=== PATIENT | female | born 1945 | race Caucasian/White ===

== ENCOUNTER 2017-01-11 11:02 | Emergency (ER) | payer OTHER, MEDICARE ==
[~2017-01-11] VITALS: Ht 165.1 cm; Wt 90.9 kg
[2017-01-11] MEDS ORDERED: SIMV10TA2 (11:13)
[2017-01-11] MEDS ORDERED: TRIBENZOR (11:13)
[2017-01-11] MEDS ORDERED: ESCI10TA2 (11:13)
--- NOTE | 2017-01-11 13:19 | REP ---
Right ankle four views: There are no comparisons. There is a fracture at the distal fibula, likely an a avulsion. There is circumferential soft tissue edema. There is a comminuted fracture of the calcaneus extending into the subtalar joint. The mortise is symmetric. Impression: Comminuted calcaneal fracture extending into the subtalar joint. Avulsion fracture of the distal fibula. Signed by Compa Shane MD 01/11/2017 01:11 P
--- NOTE | 2017-01-11 13:21 | REP ---
Right ribs and PA chest: Right ribs four views: There is no rib fracture or other rib abnormality. PA chest: There are no comparisons. There is no pneumothorax, hemothorax or pulmonary contusion. Lung rhodes are clear. Cardiac size is normal. The willow, mediastinum, and bony thorax are unremarkable. Impression: Negative PA chest. Signed by Compa Shane MD 01/11/2017 01:13 P
--- NOTE | 2017-01-11 15:06 | REP ---
RIGHT CALCANEUS: Two views of the right calcaneus are performed. There is a comminuted fracture of the calcaneus. The fracture communicates with the subtalar joint. There is mild displacement of fracture fragments. There is posterior calcaneal spurring. IMPRESSION: Comminuted fracture calcaneus as discussed above. Unreviewed
[2017-01-11] MEDS ORDERED: COLA100C5 PO (15:20)
[2017-01-11] MEDS ORDERED: NORCOTAB PO (15:20)
[2017-01-11 15:45] VITALS: BP 125/65
--- NOTE | 2017-01-11 17:56 | REP ---
CT RIGHT FOOT: CT right foot was performed in the axial plane with sagittal and coronal reconstruction images. There is a comminuted fracture of the calcaneus. There is mild depression of the superior cortex of the calcaneus. The fracture line extends through the sustentaculum velma. The fracture line extends posteriorly and laterally to communicate with the talocalcaneal joint. Another fracture line is seen at the posterior margin of the talocalcaneal joint. There is mild distraction of fracture fragments. Comminuted fracture is also seen of the posterior distal end of the fibula with mild displacement of fracture fragments. No other fracture is seen. Ankle mortise is anatomic. There is surrounding soft tissue edema. IMPRESSION: Extensive comminuted fracture of the calcaneus as discussed above communicates with the talocalcaneal joint. There is also a somewhat comminuted fracture at the distal end of the fibula posteriorly with mildly displaced fragments. Signed by Compa Jean MD 01/12/2017 01:29 P
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
== END 2017-01-11 15:47 | disposition home or self-care (01) ==
LOC: M ED 11:02
DX: S92.001A Unspecified fracture of right calcaneus, initial encounter for closed fracture (principal); I10 Essential (primary) hypertension; E78.00 Pure hypercholesterolemia, unspecified; F41.9 Anxiety disorder, unspecified; F33.8 Other recurrent depressive disorders; V43.52XA Car driver injured in collision with other type car in traffic accident, initial encounter; Y92.410 Unspecified street and highway as the place of occurrence of the external cause; Y99.9 Unspecified external cause status; Y93.9 Activity, unspecified; Z79.899 Other long term (current) drug therapy

== ENCOUNTER 2018-02-26 10:44 | Day surgery (SDC) | payer MEDICARE, OTHER ==
[2018-02-26] MEDS: NS 1,000 ML IV (08:00)
[2018-02-26] MEDS ORDERED: PROPOFOL 200 MG/20 ML VIAL As Ordered (11:47)
[2018-02-26] MEDS ORDERED: LIDOCAINE 2% INJ 100 MG/5 ML SDV (FOR ANES.) As Ordered (11:47)
== END 2018-02-26 13:03 | disposition home or self-care (01) ==
LOC: M OPP 10:44
DX: Z12.11 Encounter for screening for malignant neoplasm of colon (principal); K64.0 First degree hemorrhoids; I10 Essential (primary) hypertension; K21.9 Gastro-esophageal reflux disease without esophagitis; R12 Heartburn; F41.9 Anxiety disorder, unspecified; F32.9 Major depressive disorder, single episode, unspecified; Z78.0 Asymptomatic menopausal state; R06.83 Snoring; Z91.040 Latex allergy status; Z79.82 Long term (current) use of aspirin; Z79.899 Other long term (current) drug therapy; Z80.9 Family history of malignant neoplasm, unspecified
CPT/HCPCS: G0121

== ENCOUNTER → 2018-05-10 | Outpatient (REF) | payer MEDICARE, OTHER | LOC: M LAB REF 12:29 | DX: N60.32 Fibrosclerosis of left breast (principal) | CPT/HCPCS: 88305 ==

== ENCOUNTER → 2018-12-24 | Outpatient (REF) | payer MEDICARE, OTHER ==
[~2018-12-24] MED LIST: ASPI81TA26 PO; COLA100C5 PO; ESCI10TA2 PO; HYDR-3715 PO; SIMV10TA2 PO; TRIBENZOR; TRIBTAB3 PO
== END ==
LOC: M SFHCLERA 09:58
PROVIDERS: ATTEND Physician Assistant
DX: J02.9 Acute pharyngitis, unspecified (principal); Z53.8 Procedure and treatment not carried out for other reasons

== ENCOUNTER 2023-06-30 15:13 | Emergency (ER) | payer MEDICARE, OTHER ==
[~2023-06-30] VITALS: Ht 162.6 cm; Wt 92.7 kg
[~2023-06-30 15:13] MED LIST changes: +ESCI10TA16 PO; -ESCI10TA2 PO; -SIMV10TA2 PO; +SIMV10TA21 PO; -TRIBTAB3 PO; +[UNRECOGNIZED DRUG - CODE] PO
[2023-06-30] MEDS ORDERED: ELIQ5TAB PO ×2 (18:24→18:33)
[2023-06-30] MEDS ORDERED: APIXABAN 5 MG TAB (ELIQUIS) PO ONE (18:25)
[2023-06-30 18:56] LABS: HEMATOCRIT 38.9 % (36.0-47.0); HEMOGLOBIN 12.8 g/dl (12.0-15.5); MEAN CORPUSCULAR HEMOGLOBIN 31.3 pg (27.0-33.0); MEAN CORPUSCULAR HGB CONC 32.9 g/dl (32.0-36.5); MEAN CORPUSCULAR VOLUME 95.1 fl (80.0-96.0); PLATELET COUNT, AUTOMATED 190 10^3/uL (150-450); RED BLOOD COUNT 4.09 10^6/uL (4.00-5.40); WHITE BLOOD COUNT 8.6 10^3/uL (4.0-10.0)
[2023-06-30 19:08] LABS: INR 1.13; PROTHROMBIN TIME 14.1 SECONDS (12.5-14.5)
[2023-06-30 19:09] LABS: PARTIAL THROMBOPLASTIN TIME 27.4 SECONDS (24.8-34.2)
[2023-06-30 19:15] VITALS: BP 115/62; TEMP 98.2; O2SAT 96
[2023-06-30 19:19] LABS: BLOOD UREA NITROGEN 25 MG/DL (9-23); CALCIUM LEVEL 8.6 MG/DL (8.3-10.6); CARBON DIOXIDE LEVEL 29 MMOL/L (20-31); CHLORIDE LEVEL 104 MMOL/L (98-107); CREATININE FOR GFR 0.96 MG/DL (0.55-1.30); GLOMERULAR FILTRATION RATE > 60.0 (>39); GLUCOSE, FASTING 120 MG/DL (74-106); POTASSIUM SERUM 3.7 MMOL/L (3.5-5.1); SODIUM LEVEL 140 MMOL/L (136-145)
== END 2023-06-30 19:20 | disposition home or self-care (01) ==
LOC: M ED 15:13
DX: I82.402 Acute embolism and thrombosis of unspecified deep veins of left lower extremity (principal); I10 Essential (primary) hypertension; E78.5 Hyperlipidemia, unspecified; F41.9 Anxiety disorder, unspecified; F32.A Depression, unspecified

== ENCOUNTER → 2023-11-29 | Outpatient (CLI) | payer MEDICARE, OTHER ==
[~2023-11-29] MED LIST changes: +ELIQ5TAB PO
== END ==
LOC: M RAD 15:00
PROVIDERS: ATTEND Physician Assistant
DX: I82.412 Acute embolism and thrombosis of left femoral vein (principal)

== ENCOUNTER → 2024-03-04 | Outpatient (CLI) | payer MEDICARE, OTHER | LOC: M RAD 10:45 | PROVIDERS: ATTEND Physician Assistant | DX: I82.412 Acute embolism and thrombosis of left femoral vein (principal) ==

== ENCOUNTER 2025-04-11 16:33 | Emergency (ER) | payer MEDICARE, OTHER ==
[~2025-04-11] VITALS: Ht 162.6 cm; Wt 91.8 kg
[2025-04-11 17:46] LABS: BASO # 0.0 10^3/uL (0.0-0.2); BASO % 0.5 % (0.0-1.0); EOS # 0.1 10^3/uL (0.0-0.5); EOS % 2.2 % (0.0-3.0); LYMPH # 0.8 10^3/uL (1.5-5.0); LYMPH % 13.8 % (24.0-44.0); MONO # 0.4 10^3/uL (0.0-0.8); MONO % 6.1 % (2.0-8.0); NEUTROPHILS # 4.6 10^3/uL (1.5-8.5); NEUTROPHILS % 77.1 % (36.0-66.0); PLATELET COUNT, AUTOMATED 205 10^3/uL (150-450)
[2025-04-11 18:07] LABS: C REACTIVE PROTEIN QUANTITATIV < 0.50 MG/DL (<1.0)
[2025-04-11 18:09] LABS: INR 1.2
[2025-04-11 18:10] LABS: ALT/SGPT 13 U/L (7.0-40); AST/SGOT 15 U/L (<34); CALCIUM LEVEL 8.9 MG/DL (8.3-10.6); CARBON DIOXIDE LEVEL 30 MMOL/L (20-31); CHLORIDE LEVEL 103 MMOL/L (98-107); CREATININE FOR GFR 1.44 MG/DL (0.55-1.30); GLOMERULAR FILTRATION RATE 37.2 (>39); POTASSIUM SERUM 4.0 MMOL/L (3.5-5.1); SODIUM LEVEL 142 MMOL/L (136-145)
[2025-04-11 19:07] VITALS: TEMP 99.7
[2025-04-11 21:00] VITALS: BP 119/59; O2SAT 99
== END 2025-04-11 21:10 | disposition home or self-care (01) ==
LOC: M ED 16:33
DX: M25.461 Effusion, right knee (principal); M25.562 Pain in left knee; I10 Essential (primary) hypertension; E78.5 Hyperlipidemia, unspecified; F41.9 Anxiety disorder, unspecified; F32.A Depression, unspecified; Z91.040 Latex allergy status; Z79.01 Long term (current) use of anticoagulants; Z79.899 Other long term (current) drug therapy